=== PATIENT | female | born 1985 | race Caucasian/White ===

== ENCOUNTER 2019-09-24 12:44 | Emergency (ER) | payer BC, OTHER ==
[~2019-09-24] VITALS: Ht 167.6 cm; Wt 110.4 kg
[2019-09-24 12:46] VITALS: BP 155/80
[2019-09-24] MEDS ORDERED: KETOROLAC 30 MG/1 ML IM ONE (13:30)
[2019-09-24] MEDS ORDERED: KETOROLAC 30 MG/1 ML ONE (13:32)
== END 2019-09-24 14:43 | disposition home or self-care (01) ==
LOC: ED 14:36
DX: S00.532A Contusion of oral cavity, initial encounter (principal); R51 Headache; J45.909 Unspecified asthma, uncomplicated; F17.290 Nicotine dependence, other tobacco product, uncomplicated; Y04.8XXA Assault by other bodily force, initial encounter; Y93.89 Activity, other specified; Y92.098 Other place in other non-institutional residence as the place of occurrence of the external cause; Y99.8 Other external cause status
CPT/HCPCS: 70486; 96372; 99284; J1885

== ENCOUNTER 2019-10-31 09:56 | Emergency (ER) | payer OTHER ==
[~2019-10-31] VITALS: Ht 167.6 cm; Wt 110.4 kg
[2019-10-31] MEDS ORDERED: ALBUTEROL/IPRATROPIUM 2.5MG/0.5MG, 3 ML NPPB ONE (10:30)
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
[2019-10-31] MEDS ORDERED: ALBUTEROL/IPRATROPIUM 2.5MG/0.5MG, 3 ML NPPB PRN (11:00)
--- NOTE | 2019-10-31 11:17 | NUR ---
upon review of pt's CXR, DESMOND Wray requests duoneb to be changed to combivent MDI inhaler. order entered with pharmacy assistance. pharmacy salesperson notified to send inhaler to ED once prepared.
[2019-10-31] MEDS ORDERED: ALBUTEROL-IPRATROPIUM MDI INH INH ONE (11:30)
--- NOTE | 2019-10-31 11:34 | NUR ---
I ARRIVED FROM PHARMACY.
--- NOTE | 2019-10-31 11:49 | NUR ---
combivent administered with spacer, pt tolerated well. pt is a&o, resps even and unlabored, able to speak in full sentences without difficulty. nsr on monitoring manager without ectopy. call light in reach. EDPA notified combivent dose has been administered. awaiting further orders at this time.
--- NOTE | 2019-10-31 12:18 | NUR ---
PT C/O HEADACHE SINCE COVID SWAB, PT A&O, SPEECH CLEAR, RESPS EVEN AND UNLABORED. NO OTHER COMPLAINT. EDMD LAW NOTIFIED, TYLENOL ORDERED.
[2019-10-31] MEDS ORDERED: ACETAMINOPHEN 500 MG TABLET PO ONE ×2 (12:30→13:00)
[2019-10-31] MEDS ORDERED: ACETAMINOPHEN 500 MG TABLET ONE (12:38)
[2019-10-31 12:53] VITALS: BP 95/54
--- NOTE | 2019-10-31 12:54 | NUR ---
TYLENOL ADMIN PER EMAR, PT TOLERATED WELL. PT IS A&O, RESPS EVEN AND UNLABORED, SPEAKING IN FULL SENTENCES WITHOUT DIFFICULTY. PT IS NSR ON OPTOMETRY ASSISTANT WITH NO ECTOPY. PT GIVEN DC INSTRUCTIONS AND SCRIPT, EDUCATED REGARDING RX FOR DOXYCYCLINE, ALBUTEROL INHALER AND PREDNISONE. PT AMBULATORY TO DC WITH STEADY GAIT. NADN AT DC.
== END 2019-10-31 12:55 | disposition home or self-care (01) ==
LOC: ED 12:50
DX: J45.41 Moderate persistent asthma with (acute) exacerbation (principal); Z20.828 Contact with and (suspected) exposure to other viral communicable diseases; J18.0 Bronchopneumonia, unspecified organism; R06.00 Dyspnea, unspecified; R07.89 Other chest pain; R05 Cough; R06.02 Shortness of breath
CPT/HCPCS: 36415; 71045; 87635; 93005; 99285; J7512

== ENCOUNTER 2019-11-11 18:20 | Emergency (ER) | payer MEDICAID ==
[~2019-11-11] VITALS: Ht 167.6 cm; Wt 113.7 kg
--- NOTE | 2019-11-11 18:54 | NUR ---
cxr at bedside. plan iv/labs. report to miguel sarmiento. as
--- NOTE | 2019-11-11 18:56 | NUR ---
REPORT RECEIVED FROM JAY KELLY. ASSUMED CARE OF PT. XRAY AT BEDSIDE.
[2019-11-11] MEDS ORDERED: KETOROLAC 30 MG/1 ML IVPush ONE (19:00)
[2019-11-11] MEDS ORDERED: DIPHENHYDRAMINE 50 MG/ML, 1ML IVPush ONE (19:00)
[2019-11-11] MEDS ORDERED: PROCHLORPERAZINE 5 MG/ML, 2ML IVPush ONE (19:00)
[2019-11-11] MEDS ORDERED: DIPHENHYDRAMINE 50 MG/ML, 1ML ONE (19:08)
[2019-11-11] MEDS ORDERED: PROCHLORPERAZINE 5 MG/ML, 2ML ONE (19:08)
[2019-11-11] MEDS ORDERED: KETOROLAC 30 MG/1 ML ONE ×2 (19:08→19:09)
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
[2019-11-11 19:35] VITALS: BP 101/50
[2019-11-11 19:49] LABS: BASOPHILS # (AUTO) 0.02 x10^3/uL (0-0.1); BASOPHILS % (AUTO) 0 % (0-1); EOSINOPHILS # (AUTO) 0.38 x10^3/uL (0-0.4); EOSINOPHILS % (AUTO) 4 % (1-7); LYMPHOCYTES # (AUTO) 2.15 x10^3/uL (1-3.4); LYMPHOCYTES % (AUTO) 22 % (22-44); MD NO; MEAN CORPUSCULAR HEMOGLOBIN 28.7 pg (27.0-34.8); MEAN CORPUSCULAR HGB CONC 32.6 g/dL (32.4-35.8); MEAN CORPUSCULAR VOLUME 87.8 fL (80-100); MEAN PLATELET VOLUME 8.8 fL (7.4-10.4); MONOCYTES # (AUTO) 0.51 x10^3/uL (0.2-0.8); MONOCYTES % (AUTO) 5 % (2-9); NEUTROPHILS # (AUTO) 6.78 x10^3/uL (1.8-6.8); NEUTROPHILS % (AUTO) 69 % (42-75); PLATELET COUNT 290 x10^3/uL (130-400); RED BLOOD COUNT 4.79 x10^6/uL (3.82-5.3)
[2019-11-11 20:00] LABS: ALBUMIN 3.2 g/dL (3.4-5.0); ANION GAP 5 mmol/L (5-15); CALCIUM 8.3 mg/dL (8.5-10.1); CHLORIDE 110 mmol/L (98-107); CREATININE 0.68 mg/dL (0.55-1.02)
[2019-11-11 20:04] LABS: ALKALINE PHOSPHATASE 60 U/L (45-117); BILIRUBIN,TOTAL 0.2 mg/dL (0.2-1.0); TROPONIN I < 0.015 ng/mL (0.000-0.045)
[2019-11-11 20:06] LABS: ALANINE AMINOTRANSFERASE 19 U/L (12-78)
--- NOTE | 2019-11-11 21:13 | NUR ---
Patient/Caregiver given discharge instructions and they have confirmed that they understand the instructions. Patient ambulatory with steady gait.
== END 2019-11-11 21:17 | disposition home or self-care (01) ==
LOC: ED 20:26
DX: R06.00 Dyspnea, unspecified (principal); R51 Headache; R05 Cough; R07.9 Chest pain, unspecified; R94.31 Abnormal electrocardiogram [ECG] [EKG]; F17.210 Nicotine dependence, cigarettes, uncomplicated; J45.909 Unspecified asthma, uncomplicated
CPT/HCPCS: 36415; 71045; 80053; 83880; 84484; 85025; 93005; 96374; 99285; 99406; J1885